=== PATIENT | female | born 1970 | race Caucasian/White ===

== ENCOUNTER 2017-11-15 13:14 | Emergency (ER) | payer OTHER ==
[~2017-11-15] VITALS: Ht 160 cm; Wt 68.5 kg
[2017-11-15] MEDS ORDERED: FLEXERIL10 MG PO (13:46)
[2017-11-15] MEDS ORDERED: NAPROSYN500 MG PO (13:49)
[2017-11-15 14:24] VITALS: BP 136/97
== END 2017-11-15 14:26 | disposition home or self-care (01) ==
LOC: EME 13:14
DX: S16.1XXA Strain of muscle, fascia and tendon at neck level, initial encounter (principal); V49.40XA Driver injured in collision with unspecified motor vehicles in traffic accident, initial encounter; Y92.410 Unspecified street and highway as the place of occurrence of the external cause; J45.909 Unspecified asthma, uncomplicated; Z85.41 Personal history of malignant neoplasm of cervix uteri; F17.200 Nicotine dependence, unspecified, uncomplicated
CPT/HCPCS: 99281; 99283